=== PATIENT | male | born 1935 | race Caucasian/White ===

== ENCOUNTER 2021-04-15 20:14 | Emergency (ER) | payer MEDICARE, OTHER ==
[2021-04-15 20:33] LABS: BILIRUBIN NEGATIVE (NEGATIVE); BLOOD NEGATIVE Ery/uL (NEGATIVE); CLARITY HAZY (CLEAR); COLOR YELLOW (YELLOW); GLUCOSE (U) NORMAL (NORMAL); LEUKOCYTES NEGATIVE Leu/uL (NEGATIVE); NITRITE NEGATIVE (NEGATIVE); PROTEIN NEGATIVE (NEGATIVE); SPECIFIC GRAVITY 1.025 (1.001-1.030); UROBILINOGEN 0.2 mg/dL (0.2-1.0); pH 5.5 (5.0-9.0)
[2021-04-15 20:48] LABS: AMPHETAMINES NEGATIVE (NEGATIVE); BARBITURATES NEGATIVE (NEGATIVE); ECSTASY (MDMA) NEGATIVE (NEGATIVE); MARIJUANA (THC) NEGATIVE (NEGATIVE); METHADONE NEGATIVE (NEGATIVE); OPIATES POSITIVE (NEGATIVE); OXYCODONE NEGATIVE (NEGATIVE)
[2021-04-15 21:34] LABS: BASOPHIL 0.5 % (0-2); EOSINOPHIL 1.6 % (0-7); HCT 33.7 % (42.0-52.0); HGB 10.8 g/dl (13.2-18.0); LYMPHOCYTE 26.6 % (15-48); MCH 31.7 pg (25.0-31.0); MCV 98.8 fL (78.0-100.0); MONOCYTE 11.2 % (0-12); MPV 12.2 fL (6.0-9.5); NEUTROPHIL 59.8 % (41-80); NRBC 0; PLT 115 K/uL (150-400); RBC 3.41 M/uL (4.70-6.00); RDW 14.8 % (11.5-14.0); WBC 3.8 K/uL (4.0-10.5)
[2021-04-15 22:00] LABS: ALBUMIN 3.3 g/dL (3.4-5.0); BILIRUBIN - TOTAL 0.6 mg/dL (0.2-1.0); BUN/CREAT RATIO (CALC) 18.8 RATIO; CREATININE 1.01 mg/dL (0.67-1.17); GLOBULIN (CALCULATION) 3.6 g/dL; LACTIC ACID 1.9 mmol/L (0.4-1.9); TOTAL PROTEIN 6.9 g/dL (6.4-8.2)
== END 2021-04-16 04:10 | disposition other institution (70) ==
LOC: FER 20:14
PROVIDERS: Emergency Medicine
DX: R41.0 Disorientation, unspecified (principal); I10 Essential (primary) hypertension; Z88.8 Allergy status to other drugs, medicaments and biological substances; Z91.041 Radiographic dye allergy status; Z91.011 Allergy to milk products
CPT/HCPCS: 36415; 70450; 71045; 80053; 80305; 81003; 82140; 83605; 84443; 85025

== ENCOUNTER 2022-08-25 11:19 | Emergency (ER) | payer MEDICARE ==
[2022-08-25 12:20] LABS: BASOPHIL 0.2 % (0-2); EOSINOPHIL 0.6 % (0-7); HCT 27.6 % (42.0-52.0); HGB 8.8 g/dl (13.2-18.0); LYMPHOCYTE 24.6 % (15-48); MCH 30.7 pg (25.0-31.0); MCHC 31.9 g/dL (32.0-36.0); MCV 96.2 fL (78.0-100.0); MONOCYTE 11.5 % (0-12); MPV 10.8 fL (6.0-9.5); NEUTROPHIL 62.7 % (41-80); NRBC 0; PLT 211 K/uL (150-400); RBC 2.87 M/uL (4.70-6.00); RDW 15.3 % (11.5-14.0); WBC 5.1 K/uL (4.0-10.5)
[2022-08-25 12:42] LABS: ALBUMIN 3.1 g/dL (3.4-5.0); BILIRUBIN - TOTAL 0.5 mg/dL (0.2-1.0); BUN/CREAT RATIO (CALC) 17.1 RATIO; CREATININE 0.76 mg/dL (0.67-1.17); GLOBULIN (CALCULATION) 3.8 g/dL; TOTAL PROTEIN 6.9 g/dL (6.4-8.2)
[2022-08-25 14:13] LABS: BILIRUBIN NEGATIVE (NEGATIVE); BLOOD NEGATIVE Ery/uL (NEGATIVE); CLARITY CLEAR (CLEAR); COLOR YELLOW (YELLOW); GLUCOSE (U) NORMAL (NORMAL); LEUKOCYTES NEGATIVE Leu/uL (NEGATIVE); NITRITE NEGATIVE (NEGATIVE); PROTEIN NEGATIVE (NEGATIVE); UROBILINOGEN 0.2 mg/dL (0.2-1.0)
[2022-08-25] MEDS ORDERED: EFFER-K 20 MEQ20 MEQ PO (15:24)
[2022-08-25] MEDS ORDERED: LASIX20 MG PO (15:24)
[2022-08-25] MEDS ORDERED: IRON325 M1 PO (15:24)
== END 2022-08-25 15:55 | disposition home or self-care (01) ==
LOC: FER 11:19
PROVIDERS: Emergency Medicine
DX: R22.43 Localized swelling, mass and lump, lower limb, bilateral (principal); I51.7 Cardiomegaly; I10 Essential (primary) hypertension; Z91.041 Radiographic dye allergy status; Z79.899 Other long term (current) drug therapy; Z28.310 Unvaccinated for COVID-19
CPT/HCPCS: 36415; 71250; 80053; 81003; 83880; 84484; 85025; J1940